=== PATIENT | male | born 1950 | race Caucasian/White ===

== ENCOUNTER 2016-07-25 05:54 | Outpatient (RCR) | payer MEDICARE ==
[~2016-07-25] VITALS: Ht 30.5 cm; Wt 0.5 kg
[2016-07-25] MEDS ORDERED: NS 550ML IV ONE (05:55)
[2016-07-25] MEDS ORDERED: Methohexital Sodium Syr 100mg/10ml IVP ONE (05:55)
[2016-07-25] MEDS ORDERED: Ketorolac 60mg Inj ONE (05:55)
[2016-07-25] MEDS ORDERED: Succinylcholine 20mg/ml 10ml vial ONE (05:55)
== END 2016-08-02 | disposition home or self-care (01) ==
LOC: ECT 05:54
DX: F33.2 Major depressive disorder, recurrent severe without psychotic features (principal)
CPT/HCPCS: 90870; J0330; J7040

== ENCOUNTER 2016-08-29 05:11 | Outpatient (RCR) | payer MEDICARE ==
[~2016-08-29] VITALS: Ht 175.3 cm; Wt 79.4 kg
[2016-08-29] MEDS ORDERED: Ketorolac 30mg Inj ONE (12:00)
[2016-08-29] MEDS ORDERED: NS 550ML IV ONE (12:00)
[2016-08-29] MEDS ORDERED: Methohexital Sodium Syr 100mg/10ml IVP ONE (12:00)
[2016-08-29] MEDS ORDERED: Succinylcholine 20mg/ml 10ml vial ONE (12:00)
== END 2016-08-30 | disposition home or self-care (01) ==
LOC: ECT 05:11
DX: F33.2 Major depressive disorder, recurrent severe without psychotic features (principal); Z88.2 Allergy status to sulfonamides
CPT/HCPCS: 90870; J0330; J1885; J7040

== ENCOUNTER 2016-10-03 05:48 | Outpatient (RCR) | payer MEDICARE ==
[~2016-10-03] VITALS: Ht 175.3 cm; Wt 79.4 kg
[2016-10-03] MEDS ORDERED: Methohexital Sodium Syr 100mg/10ml IVP ONE (05:49)
[2016-10-03] MEDS ORDERED: Ketorolac 30mg Inj ONE (05:49)
[2016-10-03] MEDS ORDERED: NS 550ML IV ONE (05:49)
[2016-10-03] MEDS ORDERED: Succinylcholine 20mg/ml 10ml vial ONE (05:49)
== END 2016-10-30 | disposition home or self-care (01) ==
LOC: ECT 05:48
DX: F33.2 Major depressive disorder, recurrent severe without psychotic features (principal)
CPT/HCPCS: 90870; J0330; J1885; J7040

== ENCOUNTER 2016-11-14 06:26 | Outpatient (RCR) | payer MEDICARE ==
[~2016-11-14] VITALS: Ht 175.3 cm; Wt 79.4 kg
[2016-11-14] MEDS ORDERED: NS 550ML IV ONE (06:27)
[2016-11-14] MEDS ORDERED: Succinylcholine 20mg/ml 10ml vial ONE (06:27)
[2016-11-14] MEDS ORDERED: Methohexital Sodium Syr 100mg/10ml IVP ONE (06:27)
[2016-11-14] MEDS ORDERED: Ketorolac 60mg Inj ONE (06:27)
== END 2016-11-30 | disposition home or self-care (01) ==
LOC: ECT 06:26
DX: F33.2 Major depressive disorder, recurrent severe without psychotic features (principal)
CPT/HCPCS: 90870; J0330; J7040

== ENCOUNTER 2016-12-26 06:01 | Outpatient (RCR) | payer MEDICARE ==
[~2016-12-26] VITALS: Ht 175.3 cm; Wt 79.4 kg
[2016-12-26] MEDS ORDERED: NS 550ML IV ONE (06:02)
[2016-12-26] MEDS ORDERED: Succinylcholine 20mg/ml 10ml vial ONE (06:02)
[2016-12-26] MEDS ORDERED: Methohexital Sodium Syr 100mg/10ml IVP ONE (06:02)
[2016-12-26] MEDS ORDERED: Ketorolac 60mg Inj ONE (06:02)
== END 2016-12-30 | disposition home or self-care (01) ==
LOC: ECT 06:01
DX: F33.2 Major depressive disorder, recurrent severe without psychotic features (principal)
CPT/HCPCS: 90870; J0330; J7040

== ENCOUNTER 2017-02-06 05:10 | Outpatient (RCR) | payer MEDICARE ==
[~2017-02-06] VITALS: Ht 175.3 cm; Wt 79.4 kg
[2017-02-06] MEDS ORDERED: NS 550ML IV ONE (05:11)
[2017-02-06] MEDS ORDERED: Methohexital Sodium Syr 100mg/10ml IVP ONE (05:11)
[2017-02-06] MEDS ORDERED: Ketorolac 60mg Inj ONE (05:11)
[2017-02-06] MEDS ORDERED: Succinylcholine 20mg/ml 10ml vial ONE (05:11)
== END 2017-03-02 | disposition home or self-care (01) ==
LOC: ECT 05:10
DX: F33.2 Major depressive disorder, recurrent severe without psychotic features (principal)
CPT/HCPCS: 90870; J0330; J7040

== ENCOUNTER 2017-03-27 07:04 | Outpatient (RCR) | payer MEDICARE ==
[~2017-03-27] VITALS: Ht 175.3 cm; Wt 79.4 kg
[2017-03-27] MEDS ORDERED: NS 500ML IV ONE (07:05)
[2017-03-27] MEDS ORDERED: Succinylcholine 20mg/ml 10ml vial ONE (07:05)
[2017-03-27] MEDS ORDERED: Ketorolac 60mg Inj ONE (07:05)
[2017-03-27] MEDS ORDERED: Methohexital Sodium Syr 100mg/10ml IVP ONE (07:05)
[2017-03-27] MEDS ORDERED: Sodium Chloride 500ML 500 ML IV ONE (08:28)
== END 2017-04-01 | disposition home or self-care (01) ==
LOC: ECT 07:04
DX: F33.2 Major depressive disorder, recurrent severe without psychotic features (principal)
CPT/HCPCS: 90870; J0330; J7040

== ENCOUNTER 2017-05-15 05:47 | Outpatient (RCR) | payer MEDICARE ==
[~2017-05-15] VITALS: Ht 175.3 cm; Wt 79.4 kg
[2017-05-15] MEDS ORDERED: Methohexital Sodium Syr 100mg/10ml IVP ONE (05:48)
[2017-05-15] MEDS ORDERED: Succinylcholine 20mg/ml 10ml vial ONE (05:48)
[2017-05-15] MEDS ORDERED: Ketorolac 60mg Inj ONE (05:48)
[2017-05-15] MEDS ORDERED: NS 500ML ONE (05:48)
[2017-05-15 09:10] VITALS: BP 139/85
[2017-05-15 09:30] VITALS: BP 137/55
[2017-05-15] MEDS ORDERED: Sodium Chloride 500ML 500 ML IV ONE (09:30)
[2017-05-15 09:35] VITALS: BP 134/59
[2017-05-15 09:40] VITALS: BP 135/56
[2017-05-15 09:45] VITALS: BP 134/63
== END 2017-06-01 | disposition home or self-care (01) ==
LOC: ECT 05:47
DX: F33.2 Major depressive disorder, recurrent severe without psychotic features (principal)
CPT/HCPCS: 90870; J0330; J7040

== ENCOUNTER 2017-07-10 05:38 | Outpatient (RCR) | payer MEDICARE ==
[~2017-07-10] VITALS: Ht 175.3 cm; Wt 79.4 kg
[2017-07-10] MEDS ORDERED: Methohexital Sodium Syr 100mg/10ml IVP ONE (05:39)
[2017-07-10] MEDS ORDERED: NS 500ML ONE (05:39)
[2017-07-10] MEDS ORDERED: Succinylcholine 20mg/ml 10ml vial ONE (05:39)
[2017-07-10] MEDS ORDERED: Ketorolac 60mg Inj ONE (05:39)
[2017-07-10 08:43] VITALS: BP 135/76
[2017-07-10 09:06] VITALS: BP 152/58
[2017-07-10] MEDS ORDERED: Atropine Sulfate 0.4mg/ml inj IVP PRN (09:06)
[2017-07-10] MEDS ORDERED: Sodium Chloride 500ML 500 ML IV ONE (09:06)
[2017-07-10 09:11] VITALS: BP 140/57
[2017-07-10 09:16] VITALS: BP_SYST 131; BP_SYST 140; BP_DIAS 54; BP_DIAS 57
[2017-07-10 09:21] VITALS: BP 131/53
== END 2017-08-02 | disposition home or self-care (01) ==
LOC: ECT 05:38
DX: F33.2 Major depressive disorder, recurrent severe without psychotic features (principal); F34.1 Dysthymic disorder; Z98.84 Bariatric surgery status
CPT/HCPCS: 90870; J0330; J7040